=== PATIENT | male | born 1980 | race Caucasian/White ===

== ENCOUNTER 2025-07-03 19:22 | Emergency (ER) | payer BC ==
[~2025-07-03] VITALS: Ht 177.8 cm; Wt 74.8 kg
[2025-07-03] MEDS ORDERED: METHOCARBAMOL 750 MG TAB PO ONE (19:50)
[2025-07-03] MEDS ORDERED: NAPROXEN 250 MG TAB PO ONE (19:50)
[2025-07-03] MEDS ORDERED: NAPROXEN250 MG PO (19:51)
[2025-07-03] MEDS ORDERED: METHOCARBAMOL750 M1 PO (19:51)
== END 2025-07-03 20:01 | disposition home or self-care (01) ==
LOC: ED 19:22
DX: S29.012A Strain of muscle and tendon of back wall of thorax, initial encounter (principal); S16.1XXA Strain of muscle, fascia and tendon at neck level, initial encounter; X50.1XXA Overexertion from prolonged static or awkward postures, initial encounter; Y93.89 Activity, other specified; Y92.69 Other specified industrial and construction area as the place of occurrence of the external cause; Y99.8 Other external cause status

== ENCOUNTER 2025-07-10 16:34 | Emergency (ER) | payer BC ==
[~2025-07-10] VITALS: Ht 177.8 cm; Wt 74.8 kg
[~2025-07-10 16:34] MED LIST: METHOCARBAMOL750 M1 PO; NAPROXEN250 MG PO
[2025-07-10] MEDS ORDERED: PREDNISONE50 MG PO (16:56)
[2025-07-10] MEDS ORDERED: Acetaminophen/Hydrocodone 5 MG/325 MG TABLET PO ONE (17:00)
[2025-07-10] MEDS ORDERED: Water, Sterile 10 ML VIAL ONE (17:26)
== END 2025-07-10 17:19 | disposition home or self-care (01) ==
LOC: ED 16:34
DX: S46.811A Strain of other muscles, fascia and tendons at shoulder and upper arm level, right arm, initial encounter (principal); Z79.899 Other long term (current) drug therapy; X58.XXXA Exposure to other specified factors, initial encounter; Y93.89 Activity, other specified; Y92.89 Other specified places as the place of occurrence of the external cause; Y99.8 Other external cause status

== ENCOUNTER 2025-07-21 14:25 | Emergency (ER) | payer BC ==
[~2025-07-21] VITALS: Ht 177.8 cm; Wt 77.1 kg
[~2025-07-21 14:25] MED LIST changes: +PREDNISONE50 MG PO
== END 2025-07-21 16:00 | disposition home or self-care (01) ==
LOC: ED 14:25
DX: S46.811A Strain of other muscles, fascia and tendons at shoulder and upper arm level, right arm, initial encounter (principal); Z79.899 Other long term (current) drug therapy; Z98.890 Other specified postprocedural states; X58.XXXA Exposure to other specified factors, initial encounter; Y93.89 Activity, other specified; Y92.89 Other specified places as the place of occurrence of the external cause; Y99.8 Other external cause status